=== PATIENT | female | born 1970 | race Caucasian/White ===

== ENCOUNTER 2019-10-24 18:05 | Observation (INO) ==
[2019-10-24] MEDS ORDERED: *HR* FentaNYL (PF) 100 MCG/2 ML VIAL IVP ONE (18:33)
[2019-10-24] MEDS ORDERED: 0.9 % Sodium Chloride 1,000 ML IVC ONE (18:33)
[2019-10-24] MEDS ORDERED: Ondansetron 4 MG/2 ML VIAL IVP ONE (18:33)
[2019-10-24] MEDS ORDERED: Ketorolac 15 MG/ML VIAL IVP ONE (18:33)
[2019-10-24 19:10] LABS: Basophils % 0.3 %; Hematocrit 38.4 % (35.3-44.9); Hemoglobin 12.6 g/dL (11.5-15.4); Immature Granulocytes % 0.4 % (0-4); Lymphocytes # 0.6 K/mcL (0.6-4.6); Lymphocytes % 4.6 %; Mean Corpuscular HGB Conc 32.8 g/dL (31.6-35.5); Mean Corpuscular Hemoglobin 29.7 pg (28.0-33.3); Mean Corpuscular Volume 90.6 fL (83.0-100.0); Mean Platelet Volume 9.7 fL (9.4-12.4); Monocytes # 0.3 K/mcL (0.0-1.3); Monocytes % 1.8 %; Neutrophils # 12.8 K/mcL (1.6-8.9); Platelet Count 338 K/mcL (140-400); Red Blood Count 4.24 M/mcL (3.82-4.97); Red Cell Distribution Width 13.9 % (11.5-14.5); Segmented Neutrophils % 92.9 %
[2019-10-24 19:15] LABS: White Blood Count 13.8 K/mcL (4.3-11.1)
[2019-10-24 19:29] LABS: BUN/Creatinine Ratio 30 (6-26); Blood Urea Nitrogen 20 mg/dL (6-20); Calcium 9.2 mg/dL (8.6-10.3); Carbon Dioxide 24 mEq/L (23-29); Chloride 103 mEq/L (98-107); Glucose 115 mg/dL (70-105); Osmolality,Calculated 290 (280-300); Potassium 4.1 mEq/L (3.5-5.1); Sodium 138 mEq/L (136-145); eGFR For African Americans > 60 (> 60); eGFR For Non-African Americans > 60 (> 60)
[2019-10-24 19:57] LABS: Bilirubin,Urine Negative (Negative); Blood,Urine Moderate (Negative); Clarity,Urine Cloudy (Clear); Color,Urine Yellow (Yellow); Glucose,Urine (UA) Normal (Normal); Ketones,Urine >=160 mg/dL (Negative); Leukocyte Esterase,Urine Small (Negative); Nitrite,Urine Negative (Negative); Protein,Urine 30 mg/dL (Neg-Trace); Specific Gravity,Urine 1.028 (1.010-1.025); Urobilinogen,Urine Normal (Normal)
[2019-10-24 20:02] LABS: Bacteria,Urine Moderate per hpf (None-Few); Hyaline Casts,Urine Few per lpf (None-Few); RBC,Urine 30-50 per hpf (0-3); Squamous Epithelial Cell,Urine Many per lpf (None-Few); WBC,Urine 15-30 per hpf (0-3)
[2019-10-24] MEDS ORDERED: *HR* OxyCODONE/APAP 5/325 TABLET PO ONE (20:30)
[2019-10-24] MEDS ORDERED: *HR* HYDROmorphone (PF) 1 MG/ML SYRINGE IVP ONE (21:17)
[2019-10-24] MEDS ORDERED: Naloxone 0.4 MG/ML INJ IVP PRN ×2 (22:24)
[2019-10-24] MEDS ORDERED: *HR* Promethazine 25 MG/ML VIAL IVP PRN (22:24)
[2019-10-24] MEDS ORDERED: Ondansetron 4 MG/2 ML VIAL IVP PRN (22:24)
[2019-10-24] MEDS ORDERED: Ketorolac 15 MG/ML VIAL IVP PRN (22:24)
[2019-10-24] MEDS: 0.9 % Sodium Chloride 1,000 ML IVC SCH (22:48)
[2019-10-24] MEDS: Acetaminophen IV 1,000 MG/100 ML INFUS..BTL IVPB SCH (23:36)
[2019-10-25 05:13] LABS: BUN/Creatinine Ratio 26 (6-26); Blood Urea Nitrogen 18 mg/dL (6-20); Calcium 8.1 mg/dL (8.6-10.3); Carbon Dioxide 21 mEq/L (23-29); Chloride 105 mEq/L (98-107); Glucose 98 mg/dL (70-105); Osmolality,Calculated 292 (280-300); Potassium 3.7 mEq/L (3.5-5.1); Sodium 140 mEq/L (136-145); eGFR For African Americans > 60 (> 60); eGFR For Non-African Americans > 60 (> 60)
[2019-10-25] MEDS: Acetaminophen IV 1,000 MG/100 ML INFUS..BTL IVPB SCH ×3 (05:24→18:31)
[2019-10-25] MEDS ORDERED: cefTRIAXone 1,000 MG in Water for inj. (sterile) 10 ML IVP SCH (09:00)
[2019-10-25] MEDS: 0.9 % Sodium Chloride 1,000 ML IVC SCH (11:00)
[2019-10-25] MEDS ORDERED: *HR* Propofol 200 MG/20 ML VIAL IVP ONE (16:50)
[2019-10-25] MEDS ORDERED: *HR* Midazolam HCl 2 MG/2 ML VIAL ONE ×2 (16:50→17:53)
[2019-10-25] MEDS ORDERED: *HR* FentaNYL (PF) 100 MCG/2 ML VIAL ONE (16:50)
[2019-10-25] MEDS ORDERED: Lidocaine -MPF 2% 2 ML VIAL ONE (16:51)
[2019-10-25] MEDS ORDERED: Isovue-300 50ML VIAL ONE (16:56)
[2019-10-25] MEDS ORDERED: Famotidine 20 MG/2 ML VIAL ONE (17:00)
[2019-10-25] MEDS ORDERED: Metoclopramide 10 MG/2 ML VIAL ONE (17:00)
[2019-10-25] MEDS ORDERED: *HR* Rocuronium Bromide 50 MG/5 ML VIAL ONE (17:12)
[2019-10-25] MEDS ORDERED: Ondansetron 4 MG/2 ML VIAL ONE (17:23)
[2019-10-25] MEDS ORDERED: Dexamethasone 4 MG/ML VIAL ONE (17:23)
[2019-10-25] MEDS ORDERED: Ondansetron 4 MG/2 ML VIAL IVP PRN (18:28)
[2019-10-25] MEDS ORDERED: Naloxone 0.4 MG/ML INJ IVP PRN ×2 (18:28)
[2019-10-25] MEDS ORDERED: 0.9 % Sodium Chloride 1,000 ML IVC SCH (18:28)
[2019-10-25] MEDS ORDERED: Ketorolac 15 MG/ML VIAL IVP PRN (18:28)
[2019-10-25] MEDS ORDERED: *HR* Promethazine 25 MG/ML VIAL IVP PRN (18:28)
[2019-10-25 19:46] VITALS: BP 100/66
[2019-10-26] MEDS ORDERED: Acetaminophen IV 1,000 MG/100 ML INFUS..BTL IVPB SCH
[2019-10-26] MEDS ORDERED: cefTRIAXone 1,000 MG in Water for inj. (sterile) 10 ML IVP SCH (09:00)
[2019-10-30 11:40] LABS: Calculi Mass 66 mg
== END 2019-10-25 20:02 | disposition home or self-care (01) ==
LOC: 3ANU 18:05 → EMEROOARM 18:05 → 3ANU 22:13
PROVIDERS: ADMIT Urology; ATTEND Urology